=== PATIENT | male | born 1950 | race Caucasian/White ===

== ENCOUNTER → 2018-07-06 | Outpatient (CLI) | payer MEDICARE ==
[2018-07-06 13:59] LABS: Source, Urine Catheter
[2018-07-06 14:08] LABS: Bilirubin, Urine Neg (Neg); Blood, Urine 5+ (Neg); Glucose Qualitative, Urine Neg (Neg); Ketones, Urine Neg (Neg); Leukocyte Esterase, Urine 3+ (Neg); Nitrite, Urine Neg (Neg); Protein, Urine 2+ (Neg); Urobilinogen, Urine NORM (Normal)
[2018-07-06 14:19] LABS: Appearance, Urine Cloudy (Clear); Color, Urine Amber (P-Yellow)
[2018-07-06 14:21] LABS: Red Blood Cells, Urine TNTC /hpf (0-2); Transitional Epithelial Cells Few /hpf (0-Rare); White Blood Cells, Urine TNTC /hpf (0-5)
[2018-07-06 14:22] LABS: Bacteria Few /hpf; Squamous Epithelial Cells Not Seen /hpf (Few)
== END | disposition home or self-care (01) ==
LOC: LAB 13:56 → LAB SHORT 13:56
DX: N39.0 Urinary tract infection, site not specified (principal)
CPT/HCPCS: 81001; 87077; 87086; 87186

== ENCOUNTER → 2018-11-24 | Outpatient (CLI) | payer MEDICARE ==
[2018-11-24 14:51] LABS: Source, Urine Clean Catch
[2018-11-24 15:30] LABS: Bilirubin, Urine Neg (Neg); Blood, Urine Neg (Neg); Glucose Qualitative, Urine Neg (Neg); Ketones, Urine Neg (Neg); Leukocyte Esterase, Urine Neg (Neg); Nitrite, Urine Neg (Neg); Protein, Urine 1+ (Neg); Specific Gravity, Urine 1.025 (1.003-1.022); Urobilinogen, Urine NORM (Normal)
[2018-11-24 15:33] LABS: Appearance, Urine Clear (Clear); Color, Urine Yellow (P-Yellow)
== END | disposition home or self-care (01) ==
LOC: LAB SHORT 14:47 → LAB 14:47
PROVIDERS: Nurse Practitioner Family
DX: N39.0 Urinary tract infection, site not specified (principal)
CPT/HCPCS: 81003

== ENCOUNTER → 2020-12-03 | Outpatient (CLI) | payer MEDICARE ==
[2020-12-03 15:18] LABS: BASOPHILS ABSOLUTE AUTO 0.04 K/mm3 (0.00-0.23); BASOPHILS PERCENT AUTO 1 % (0-2); EOSINOPHILS PERCENT AUTO 5 % (0-6); Hemoglobin 13.7 g/dL (13.5-17.5); IMMATURE GRAN ABSOLUTE AUTO 0.01 K/mm3 (0.00-0.10); IMMATURE GRAN PERCENT AUTO 0 % (0-1); LYMPHOCYTES ABSOLUTE AUTO 1.17 K/mm3 (0.84-5.20); LYMPHOCYTES PERCENT AUTO 21 % (21-46); MONOCYTES ABSOLUTE AUTO 0.57 K/mm3 (0.16-1.47); MONOCYTES PERCENT AUTO 10 % (4-13); Mean Corpuscular HGB 34.1 pg (26.0-34.0); Mean Corpuscular HGB Conc 34.3 g/dL (31.5-36.5); Mean Corpuscular Volume 100 fL (80-100); Mean Platelet Volume 11.5 fL (9.1-12.4); NEUTROPHILS ABSOLUTE AUTO 3.46 K/mm3 (1.96-9.15); NEUTROPHILS PERCENT AUTO 62 % (41-73); Platelet Count 192 K/mm3 (150-400); RDW Coefficient Variation 13.2 % (11.7-14.2); RDW Standard Deviation 48.8 fL (35.1-46.3); Red Blood Cell Count 4.02 M/mm3 (4.30-5.90); White Blood Cell Count 5.55 K/mm3 (4.00-11.30)
== END | disposition home or self-care (01) ==
LOC: LAB SHORT 08:30 → LAB 08:30
PROVIDERS: Internal Medicine
DX: E78.5 Hyperlipidemia, unspecified (principal); R53.81 Other malaise; I10 Essential (primary) hypertension
CPT/HCPCS: 85025

== ENCOUNTER → 2021-09-04 | Outpatient (CLI) | payer MEDICARE ==
[2021-09-04 18:30] LABS: Albumin, Blood 3.7 g/dL (3.4-5.0); Bilirubin, Direct 0.2 mg/dL (0.0-0.3); Bilirubin, Indirect 0.5 mg/dL (0.1-0.7); Bilirubin, Total 0.7 mg/dL (0.1-1.0); Globulin, Blood 3.6 g/dL (2.2-4.0); Total Protein, Blood 7.3 g/dL (6.4-8.2)
== END | disposition home or self-care (01) ==
LOC: LAB SHORT 14:55 → LAB 14:55
PROVIDERS: Internal Medicine
DX: E78.5 Hyperlipidemia, unspecified (principal)
CPT/HCPCS: 80076

== ENCOUNTER 2025-04-07 10:24 | Emergency (ER) | payer MEDICARE ==
[~2025-04-07] VITALS: Ht 188 cm; Wt 86.2 kg
[2025-04-07 10:58] LABS: BASOPHILS ABSOLUTE AUTO 0.03 K/mm3 (0.00-0.23); BASOPHILS PERCENT AUTO 0 % (0-2); EOSINOPHILS ABSOLUTE AUTO 0.01 K/mm3 (0.00-0.68); EOSINOPHILS PERCENT AUTO 0 % (0-6); Hematocrit 38.4 % (37.0-53.0); Hemoglobin 13.6 g/dL (13.5-17.5); IMMATURE GRAN ABSOLUTE AUTO 0.11 K/mm3 (0.00-0.10); IMMATURE GRAN PERCENT AUTO 1 % (0-1); LYMPHOCYTES ABSOLUTE AUTO 1.64 K/mm3 (0.84-5.20); LYMPHOCYTES PERCENT AUTO 10 % (21-46); MONOCYTES ABSOLUTE AUTO 1.23 K/mm3 (0.16-1.47); MONOCYTES PERCENT AUTO 7 % (4-13); Mean Corpuscular HGB Conc 35.4 g/dL (31.5-36.5); Mean Corpuscular Volume 98 fL (80-100); NEUTROPHILS ABSOLUTE AUTO 13.83 K/mm3 (1.96-9.15); NEUTROPHILS PERCENT AUTO 82 % (41-73); NRBC ABSOLUTE 0.00 K/mm3 (0.00-0.02); NRBC Auto 0.0 /100 WBC (0.0-0.2); Platelet Count 242 K/mm3 (150-400); RDW Coefficient Variation 12.8 % (11.7-14.2); RDW Standard Deviation 45.8 fL (35.1-46.3)
[2025-04-07 11:12] LABS: Alanine Aminotransfer (ALT/SGP 131.0 U/L (12-78); Albumin, Blood 3.3 g/dL (3.4-5.0); Albumin/Globulin Ratio 0.9 (0.8-1.8); Anion Gap 12.0 mmol/L (3-11); Aspartate Aminotrans (AST/SGOT 91.0 U/L (12-37); Bilirubin, Total 0.9 mg/dL (0.1-1.0); Blood Urea Nitrogen 84.0 mg/dL (8-24); CO2, Blood 22.0 mmol/L (21-32); Calcium, Blood 9.4 mg/dL (8.5-10.1); Chloride, Blood 111.0 mmol/L (98-108); Creatinine, Blood 1.62 mg/dL (0.60-1.20); Globulin, Blood 3.5 g/dL (2.2-4.0); Glucose, Blood 152.0 mg/dL (70-99); Potassium, Blood 3.4 mmol/L (3.5-5.5); Sodium, Blood 142.0 mmol/L (136-145); Total Protein, Blood 6.8 g/dL (6.4-8.2)
[2025-04-07 11:15] LABS: Source, Urine Fem Cath
[2025-04-07 11:17] LABS: Bilirubin, Urine Neg (Neg); Color, Urine Yellow (P-Yellow); Glucose Qualitative, Urine Neg (Neg); Ketones, Urine 1+ (Neg); Leukocyte Esterase, Urine 3+ (Neg); Protein, Urine 3+ (Neg); Specific Gravity, Urine 1.010 (1.003-1.022); Urobilinogen, Urine NORM (Normal)
[2025-04-07 11:33] LABS: White Blood Cells, Urine 25-50 /hpf (0-5)
[2025-04-07] MEDS ORDERED: CefTRIAXone 1000 MG Vial IM ONE (12:20)
[2025-04-07] MEDS ORDERED: NS 1,000 ML IV SCH (12:20)
[2025-04-07] MEDS ORDERED: CEPH500 PO (16:20)
[2025-04-07 18:00] VITALS: BP 124/71
== END 2025-04-07 19:02 | disposition home or self-care (01) ==
LOC: ER 10:24
PROVIDERS: Emergency Medicine
DX: N39.0 Urinary tract infection, site not specified (principal); I10 Essential (primary) hypertension; F32.A Depression, unspecified
CPT/HCPCS: 51701; 71045; 80053; 81001; 82272; 85025; 87077; 87086; 87186; 93005; 93010; 96360; 96372; 99285-25; J0696; J7030

== ENCOUNTER 2025-04-10 10:32 | Inpatient (IN) | payer MEDICARE ==
[~2025-04-10] VITALS: Ht 182.9 cm; Wt 97.2 kg
[2025-04-10] VITALS (20 sets, daily range): BP systolic 77–105; BP diastolic 38–68
[~2025-04-10 10:32] MED LIST: CEPH500 PO
[2025-04-10] MEDS ORDERED: LISI5 PO (10:57)
[2025-04-10] MEDS ORDERED: ATOR40TA PO (10:57)
[2025-04-10] MEDS ORDERED: Aspir 8181 MG PO (10:57)
[2025-04-10] MEDS ORDERED: AMLO5 PO (10:57)
[2025-04-10] MEDS ORDERED: Acetaminophen325 M1 PO (10:58)
[2025-04-10] MEDS ORDERED: METO50ER PO (10:58)
[2025-04-10] MEDS ORDERED: SERT50 PO (10:58)
[2025-04-10] MEDS ORDERED: BISA10S (10:59)
[2025-04-10] MEDS ORDERED: MIRALAX11910 PO (11:00)
[2025-04-10] MEDS ORDERED: TRAZ50 PO (11:00)
[2025-04-10] MEDS ORDERED: Ondansetron HCl 2 MG / ML 2ML Vial IV PRN (11:00)
[2025-04-10 11:03] LABS: BASOPHILS ABSOLUTE AUTO 0.03 K/mm3 (0.00-0.23); BASOPHILS PERCENT AUTO 0 % (0-2); EOSINOPHILS ABSOLUTE AUTO 0.05 K/mm3 (0.00-0.68); EOSINOPHILS PERCENT AUTO 0 % (0-6); Hematocrit 32.5 % (37.0-53.0); Hemoglobin 11.2 g/dL (13.5-17.5); IMMATURE GRAN ABSOLUTE AUTO 0.18 K/mm3 (0.00-0.10); IMMATURE GRAN PERCENT AUTO 1 % (0-1); LYMPHOCYTES ABSOLUTE AUTO 2.41 K/mm3 (0.84-5.20); LYMPHOCYTES PERCENT AUTO 15 % (21-46); MONOCYTES ABSOLUTE AUTO 1.18 K/mm3 (0.16-1.47); MONOCYTES PERCENT AUTO 8 % (4-13); Mean Corpuscular HGB Conc 34.5 g/dL (31.5-36.5); Mean Corpuscular Volume 100 fL (80-100); NEUTROPHILS ABSOLUTE AUTO 11.80 K/mm3 (1.96-9.15); NEUTROPHILS PERCENT AUTO 75 % (41-73); NRBC ABSOLUTE 0.03 K/mm3 (0.00-0.02); NRBC Auto 0.2 /100 WBC (0.0-0.2); Platelet Count 199 K/mm3 (150-400); RDW Coefficient Variation 13.2 % (11.7-14.2); RDW Standard Deviation 47.7 fL (35.1-46.3)
[2025-04-10 11:24] LABS: Alanine Aminotransfer (ALT/SGP 174.0 U/L (12-78); Albumin, Blood 2.8 g/dL (3.4-5.0); Albumin/Globulin Ratio 0.9 (0.8-1.8); Anion Gap 10.0 mmol/L (3-11); Aspartate Aminotrans (AST/SGOT 109.0 U/L (12-37); Bilirubin, Total 0.6 mg/dL (0.1-1.0); Blood Urea Nitrogen 67.0 mg/dL (8-24); CO2, Blood 26.0 mmol/L (21-32); Calcium, Blood 8.8 mg/dL (8.5-10.1); Chloride, Blood 114.0 mmol/L (98-108); Creatinine, Blood 1.01 mg/dL (0.60-1.20); Globulin, Blood 3.0 g/dL (2.2-4.0); Glucose, Blood 111.0 mg/dL (70-99); Potassium, Blood 3.6 mmol/L (3.5-5.5); Sodium, Blood 146.0 mmol/L (136-145); Total Protein, Blood 5.8 g/dL (6.4-8.2)
[2025-04-10 11:36] LABS: Prothrombin Time Results 12.2 Sec (9.7-11.5)
[2025-04-10] MEDS ORDERED: Pantoprazole Sodium 40 MG Injection IV ONE (11:40)
[2025-04-10] MEDS ORDERED: NS 500 ML IV SCH (11:40)
[2025-04-10] MEDS ORDERED: CefTRIAXone Sodium 1,000 MG in NS 50 ML IV ONE (12:40)
[2025-04-10 13:54] LABS: Hematocrit 30.8 % (37.0-53.0); Hemoglobin 10.4 g/dL (13.5-17.5)
[2025-04-10] MEDS ORDERED: FLU VACC TS2025(65UP)/MF59C/PF 45 MCG/0.5 ML SYRINGE IM SCH (14:55)
[2025-04-10] MEDS ORDERED: NS 500 ML IV ONE ×2 (15:00→17:05)
[2025-04-10] MEDS ORDERED: NS 1,000 ML IV SCH (15:00)
[2025-04-10] MEDS ORDERED: Pantoprazole Sodium 40 MG Injection IV SCH (16:30)
--- NOTE | 2025-04-10 17:49 | NUR ---
ASSUMED CARE 0F PT @1615 PT ALERT, ORIENTED 3-4. HYPOTENSIVE BUT STABLE - RECEIVING FLUID BOLUS X2 UPON ARRIVAL TO UNIT. FINISHED ADMISSION TO [facility] WITH PT RESPONSES AND PAPERWORK. DEEP TISSUE INJURY FOUND TO SACRUM - NOTIFIED DR CHANDRA. UPON FURTHER ASSESMENT- SCROTAL ABRASION AND SKIN TEAR TO R ELBOW NOTED WELL - SKIN CARE IN PLACE. PT REMAINS HYPOTENSIVE POST FLUID 1L LR BOLUS AND 500ML NS BOLUS - UPDATED DR CHANDRA - ORDER FOR REPEAT 500ML BOLUS - FINISHED @1750 - ASSESSING FOR EFFECTIVENESS NOW. PT ASYMPTOMATIC BUT RESTING. REMAINS SR. NO BM OF YET POST ADMISSION - AWAITING FOR STOOL SAMPLE COLLECTION. BED ALARM IN PLACE.
[2025-04-10] MEDS ORDERED: NS 250 ML IV ONE (18:20)
--- NOTE | 2025-04-10 18:27 | NUR ---
provider - idane oscar[gurdeep pf continued low bp's - order for repeat 250ml bolus ns
[2025-04-10 20:33] LABS: Hematocrit 26.5 % (37.0-53.0); Hemoglobin 8.8 g/dL (13.5-17.5)
[2025-04-10] MEDS ORDERED: Lactobacil 2-S.Thermo-Bifido 1 1 Cap PO SCH (21:00)
[2025-04-10 21:17] LABS: Ferritin, Serum 358.0 ng/mL (26-388); Total Iron Binding Capacity 209.0 ug/dL (250-450)
[2025-04-10] MEDS ORDERED: NS 1,000 ML IV ONE (21:30)
[2025-04-10 22:16] LABS: Hematocrit 24.8 % (37.0-53.0); Hemoglobin 8.4 g/dL (13.5-17.5)
--- NOTE | 2025-04-10 23:57 | NUR ---
UPDATE ASSUMED CARE OF PT AT 1900. PT WAS ALERT BUT DROWSY. PT ABLE TO SAY NAME AND AND MONTH OF DATE. LUNG SOUNDS CLEAR. HEART SOUNDS REGULAR. PT HAD VERY LARGE LOOSE DARK RED STOOL AT SHIFT CHANGE. HOSPITALIST NOTIFIED AND TALKED WITH PATIENT WHO AGREED TO BLOOD TRANSFUSIONG IF NECESSARY. PT GIVEN BOLUS AND MIDOR[place] WITHOUT EFFECT. PT HAD SECOND LARGE LOOSE BLACK STOOL. HOSPITALIST NOTIFED AND PROTONIX GTT STARTED. PT AWAITING ICU BED. PT VIVI HOUSE NOTIFED EARLIER PT MAY STATUS CHANGE TO ICU DUE TO SOME BP.
[2025-04-11] VITALS (71 sets, daily range): BP systolic 78–148; BP diastolic 32–97
--- NOTE | 2025-04-11 00:25 | NUR ---
PT ARRIVED FROM PCU ROOM 11 ACCOMPANIED WITH RN VIA BED. PT ORIENTED TO PERSON AND BIRTHDATE ONLY. NS INFUSING AT 100CC/HR. PROTONIX INFUSING AT 10ML/HR. BP 107/76. PT INCONTINENT OF LARGE AMOUNT BLACK LIQUID AND FECAL MANAGEMENT SYSTEM PLACED. PICTURES TAKEN OF RT BUTTOCK, SCROTUM, AND RT ELBOW. ONLY C/O PAIN IS WHEN HE IS CLEANED UP FROM LOOSE BOWEL MOVENT.
--- NOTE | 2025-04-11 01:00 | NUR ---
PT BLADDER SCANNED X [address] ZEPEDA NOTIFED AND # 16 F/C INSERTED. CLEAR YELLOW URINE RETURN. BP MAINTAINING 111/57 WITH MAP OF 75.
[2025-04-11 02:10] LABS: Hematocrit 26.5 % (37.0-53.0); Hemoglobin 8.9 g/dL (13.5-17.5); Mean Corpuscular HGB Conc 33.6 g/dL (31.5-36.5); Mean Corpuscular Volume 102 fL (80-100); NRBC ABSOLUTE 0.02 K/mm3 (0.00-0.02); NRBC Auto 0.1 /100 WBC (0.0-0.2); Platelet Count 152 K/mm3 (150-400); RDW Coefficient Variation 13.4 % (11.7-14.2); RDW Standard Deviation 50.1 fL (35.1-46.3)
[2025-04-11 02:43] LABS: Alanine Aminotransfer (ALT/SGP 124.0 U/L (12-78); Albumin, Blood 2.3 g/dL (3.4-5.0); Albumin/Globulin Ratio 0.9 (0.8-1.8); Anion Gap 9.0 mmol/L (3-11); Aspartate Aminotrans (AST/SGOT 72.0 U/L (12-37); Bilirubin, Total 0.4 mg/dL (0.1-1.0); Blood Urea Nitrogen 56.0 mg/dL (8-24); CO2, Blood 24.0 mmol/L (21-32); Calcium, Blood 7.9 mg/dL (8.5-10.1); Chloride, Blood 116.0 mmol/L (98-108); Creatinine, Blood 0.94 mg/dL (0.60-1.20); Globulin, Blood 2.6 g/dL (2.2-4.0); Glucose, Blood 99.0 mg/dL (70-99); Potassium, Blood 3.7 mmol/L (3.5-5.5); Sodium, Blood 145.0 mmol/L (136-145); Total Protein, Blood 4.9 g/dL (6.4-8.2)
--- NOTE | 2025-04-11 04:58 | NUR ---
UNABLE TO WAKE PATIENT UP. LEVOPHED TITRATED TO 6. DR. LINTON NOTIFIED.
[2025-04-11] MEDS ORDERED: Naloxone HCl 0.4MG / ML 1ML Vial ONE (05:08)
[2025-04-11] MEDS ORDERED: Naloxone HCl 1MG / ML 2ML SYR IV ONE (05:10)
[2025-04-11 05:12] LABS: pH Blood Venous 7.41 (7.34-7.37)
[2025-04-11 05:28] LABS: BASOPHILS ABSOLUTE AUTO 0.07 K/mm3 (0.00-0.23); BASOPHILS PERCENT AUTO 0 % (0-2); EOSINOPHILS ABSOLUTE AUTO 0.57 K/mm3 (0.00-0.68); EOSINOPHILS PERCENT AUTO 4 % (0-6); Hematocrit 25.9 % (37.0-53.0); Hemoglobin 8.6 g/dL (13.5-17.5); IMMATURE GRAN ABSOLUTE AUTO 0.20 K/mm3 (0.00-0.10); IMMATURE GRAN PERCENT AUTO 1 % (0-1); LYMPHOCYTES ABSOLUTE AUTO 4.36 K/mm3 (0.84-5.20); LYMPHOCYTES PERCENT AUTO 27 % (21-46); MONOCYTES ABSOLUTE AUTO 1.33 K/mm3 (0.16-1.47); MONOCYTES PERCENT AUTO 8 % (4-13); Mean Corpuscular HGB Conc 33.2 g/dL (31.5-36.5); Mean Corpuscular Volume 103 fL (80-100); NEUTROPHILS ABSOLUTE AUTO 9.76 K/mm3 (1.96-9.15); NEUTROPHILS PERCENT AUTO 60 % (41-73); NRBC ABSOLUTE 0.02 K/mm3 (0.00-0.02); NRBC Auto 0.1 /100 WBC (0.0-0.2); Platelet Count 160 K/mm3 (150-400); RDW Coefficient Variation 13.4 % (11.7-14.2); RDW Standard Deviation 50.4 fL (35.1-46.3)
[2025-04-11 05:37] LABS: Anion Gap 8.0 mmol/L (3-11); Blood Urea Nitrogen 51.0 mg/dL (8-24); CO2, Blood 23.0 mmol/L (21-32); Calcium, Blood 7.8 mg/dL (8.5-10.1); Chloride, Blood 117.0 mmol/L (98-108); Creatinine, Blood 0.95 mg/dL (0.60-1.20); Glucose, Blood 99.0 mg/dL (70-99); Potassium, Blood 3.5 mmol/L (3.5-5.5); Sodium, Blood 144.0 mmol/L (136-145)
--- NOTE | 2025-04-11 06:38 | NUR ---
END OF SHIFT. PT CAME HERE FROM PCU 11 AT 0025. PT CAN STATE HIS NAME AND DATE OF BUT CONFUSED ON EVERYTHING ELSE. PT HAS LARGE LIQUID COFFEE GROUND STOOL AND FECAL MANAGEMENT SYSTEM APPLIED. BLADDER SCAN ON 465 AND F/C INSERTED FOR ASCCURATE I/O'S. BP DRIFTED DOWN TO MAP OF 54 AND LEVOPHED STARTED AT 2 MICS AND TITRATED TO 10 MICS. PROTONIX DRIP CONTINUED. PT BECAME UNRESONSIVE. dR. Bella NOTIFED AND 1MG NARCAN GIVEN. QUAD CENTRAL LINE INSERTED IN RT JUGULAR. STAT CXRAY. DR. JI CONFIRMED PLACEMENT. AMMONIA AND CBC SENT TO LAB. CT OF HEAR ORDERED WITHOUT CONTRAST.PT RESPONDS TO PAIN BUT GOES RIGHT BACK TO SLEEP.
[2025-04-11 06:43] LABS: Hematocrit 24.4 % (37.0-53.0); Hemoglobin 8.3 g/dL (13.5-17.5)
[2025-04-11 06:59] LABS: Calcium, Ionized (POC) 1.22 mmol/L (1.10-1.46); Chloride (POC) 108 mmol/L (98-108); Creatinine (POC) 1.1 mg/dL (0.8-1.3); Glucose (ISTAT POC) 107 mg/dL (70-99); Hematocrit (POC) 33.0 % (41.0-53.0); Hemoglobin (POC) 11.2 g/dL (13.5-17.5); Potassium (POC) 3.6 mmol/L (3.5-5.5); Sodium (POC) 146 mmol/L (135-148); Total CO2 (POC) 21 mmol/L (21-32)
--- NOTE | 2025-04-11 08:01 | NUR ---
ASSUMED CARE NOTE: ASSUMED CARE OF PT AT 0700. PT IS LETHARGIC, RESPONDS TO VERBAL STIMULI, ORIENTED TO SELF/MONTH, DISORIENTED TO PLACE AND SITUATION. PT ABLE TO FOLLOW SIMPLE COMMANDS. PT ON RA WITH SPO2 ABOVE 92% MOUTH BREATHING, ORAL MUCOSA DRY, ORAL CARE PROVIDED. PT IN SINUS ARRYTHMIA, HR 50'S, LEVOPHED INFUSING AT 6MCG/MIN VIA CENTRAL LINE TO MAINTAIN MAP ABOVE 65. ACTIVE BT IN ALL QUADRANTS, RECTAL TUBE DRAINING TO GRAVITY, COFFEE GROUND STOOL NOTED. BUSTILLO PATENT, DRAINING TO GRAVITY, CLEAR YELLOW URINE NOTED. PT TAKEN FOR HEAD CT. PLAN OF CARE ONGOING.
[2025-04-11] MEDS ORDERED: NS 1,000 ML IV SCH (08:05)
[2025-04-11] MEDS ORDERED: CefTRIAXone Sodium 1,000 MG in NS 100 ML IV SCH (09:00)
[2025-04-11 11:36] LABS: Hematocrit 22.9 % (37.0-53.0); Hemoglobin 7.8 g/dL (13.5-17.5)
[2025-04-11 12:53] LABS: Stool Occult Bld Immuno 1 Positive (NEGATIVE)
[2025-04-11 16:39] LABS: Hematocrit 22.9 % (37.0-53.0); Hemoglobin 7.9 g/dL (13.5-17.5)
--- NOTE | 2025-04-11 18:20 | NUR ---
SHIFT SUMMARY: PT LETHARGIC, OPENS EYES TO VERBAL STIMULI, ABLE TO FOLLOW SIMPLE COMMANDS. PT CONFUSED, ORIENTED TO SELF ONLY. MUMBLED SPEECH, SLOW TO RESPOND. PT IN SR, HR IN THE 60'S. BP STABLE, MAP REMAINS ABOVE 65, LEVOPHED OFF AT 1600. PT PLACED ON 2L OF OXYGEN VIA NC , SPO2 ABOVE 95% NO RESP DISTRESS NOTED. PT ENDORSES TENDERNESS TO LOWER ABD QUADRANTS, FECAL MANAGMENT SYSTEM IN PLACE, DRAINING BLACK LIQUID STOOL. BUSTILLO PATENT, DRAINING TO GRAVITY, CLEAR YELLOW URINE NOTED. SCD'S IN PLACE. ORAL CARE PROVIDED Q4HRS. PT REPOSITIONED Q2HRS. NS INFUSING AT 150ML/HR, PROTONIX AT 10ML/HR. CENTRAL LINE TO RIJ C/D/I. PLAN OF CARE ONGOING.
--- NOTE | 2025-04-11 19:15 | NUR ---
ASSUMPTION OF CARE: REPORT FROM AEB RN, THIS RN TO ASSUME CARE OF PT. PT ALERT AND LISTENING TO BEDSIDE SHIFT REPORT. SINUS ON THE MONITOR. BUSTILLO AND RECTAL TUBE IN PLACE. DENIES ANY COMPLAINTS OR NEEDS AT THIS TIME. CALL LIGHT IN REACH.
[2025-04-11 23:11] LABS: Hematocrit 21.1 % (37.0-53.0); Hemoglobin 7.3 g/dL (13.5-17.5)
[2025-04-12] VITALS (13 sets, daily range): BP systolic 97–136; BP diastolic 43–68
--- NOTE | 2025-04-12 02:02 | NUR ---
UPDATE: CRISELDA SWALLOW EVAL PERFORMED AT THE BEGINNING OF THE SHIFT. PT WAS ABLE TO TOLERATE WATER FINE AND TOOK HIS PILLS WITH APPLESAUCE WITH NO PROBLEMS. LATER THIS AM PT ASKED FOR SOME WATER, PT WAS GIVEN WATER AND CLEARED THROAT A FEW TIMES AFTER DRINKING WATER. PLAN TO MAKE PT NPO TILL LATER WHEN HE IS AWAKE TO REEVALUATE AND SPEECH EVAL ORDERED.
[2025-04-12 04:41] LABS: Hematocrit 21.3 % (37.0-53.0); Hemoglobin 7.2 g/dL (13.5-17.5); Mean Corpuscular HGB Conc 33.8 g/dL (31.5-36.5); Mean Corpuscular Volume 101 fL (80-100); NRBC ABSOLUTE 0.00 K/mm3 (0.00-0.02); NRBC Auto 0.0 /100 WBC (0.0-0.2); Platelet Count 128 K/mm3 (150-400); RDW Coefficient Variation 13.3 % (11.7-14.2); RDW Standard Deviation 49.4 fL (35.1-46.3)
[2025-04-12 04:53] LABS: Anion Gap 5.0 mmol/L (3-11); Blood Urea Nitrogen 21.0 mg/dL (8-24); CO2, Blood 28.0 mmol/L (21-32); Calcium, Blood 7.6 mg/dL (8.5-10.1); Chloride, Blood 114.0 mmol/L (98-108); Creatinine, Blood 0.73 mg/dL (0.60-1.20); Glucose, Blood 106.0 mg/dL (70-99); Potassium, Blood 3.4 mmol/L (3.5-5.5); Sodium, Blood 144.0 mmol/L (136-145)
--- NOTE | 2025-04-12 07:19 | NUR ---
SHIFT SUMMARY: PT A&OX4. FOLLOWS COMMANDS AND MAKES NEEDS KNOWN TO STAFF. PT HAS RESTED MOST OF THE NIGHT WITH NO COMPLAINTS OF CP, PRESSURE, TIGHTNESS OR SOB. VSS. AFEBRILE. BUSTILLO REMAINS IN PLACE WITH GOOD OUTPUT OVERNIGHT. RECTAL TUBE REMAINS IN PLACE WITH A SMALL AMOUNT OF DARK LIQUID STOOL. PROTONIX GTT INFUSING. POTASSIUM IS BEING REPLACED AT THIS TIME. QUAD LUMEN CENTRAL LINE REMAINS IN PLACE TO R NECK. SEE PREVIOUS NOTE ABOUT SWALLOWING CONCERNS. NO SIGNIFICANT EVENTS HAPPENED DURING THIS SHIFT.
[2025-04-12] MEDS ORDERED: NS 50 ML IV ONE (09:26)
[2025-04-12 11:26] LABS: Hematocrit 22.0 % (37.0-53.0); Hemoglobin 7.6 g/dL (13.5-17.5)
--- NOTE | 2025-04-12 16:26 | NUR ---
SHIFT SUMMARY NEURO: PT ALERT AND ORIENTED X4 WITH SOME INTERMITTENT CONFUSION. REPEATS EVENTS BACK TO HIMSELF AT TIMES TO REMEMBER NAMES ETC. ABLE TO MAKE HIS NEEDS KNOWN. HAS NOT USED CALL TAYLOR. VERY PLESANT. CARDIAC: SR, SBP 90-120S, HR 50-60 THIS AM, NOW 80-90S. +EDEMA BUE +2. + 4.2L PULM: LUNGS CLEAR TO AUSCULATION. ON 2LPM THIS AM. SPO2 >95% ON RA. GI: ABDOMEN IS SOFT AND TENDER, SOME MILD NAUSEA. RECTAL TUBE IN PLACE SMALL AMOUNT OF BLACK LIQUID STOOL IN DEVICE. DECREASED APPEITE BUT TAKING IN PO FLUIDS WELL. : BUSTILLO IN PLACE DRAINING TO GRAVITY. CLEAR/YELLOW. SKIN: PHOTOS IN CHART. MEPLIEX TO COCCYX STG 2 PRESSURE INJURY PRESENT ON ADMISSION. R ELBOW INCINERATOR ATTENDANT, OBLONG SKIN TEAR PRESENT ON ADMISSION. REDNESS TO SCROTUM UNCHANGED. [facility] CALL[facility] AND PROVIDED UPDATE. PT CHG BATH COMPLETED WITH GOWN CHANGE. RIJ CENTRAL LINE REMOVED AND PT STATUS CHANGED TO PCU.
[2025-04-13] VITALS (80 sets, daily range): BP systolic 57–153; BP diastolic 38–85
[2025-04-13 01:24] LABS: Hematocrit 20.7 % (37.0-53.0); Hemoglobin 7.1 g/dL (13.5-17.5)
[2025-04-13 01:45] LABS: Alanine Aminotransfer (ALT/SGP 70.0 U/L (12-78); Albumin, Blood 1.9 g/dL (3.4-5.0); Albumin/Globulin Ratio 0.8 (0.8-1.8); Anion Gap 12.0 mmol/L (3-11); Aspartate Aminotrans (AST/SGOT 35.0 U/L (12-37); Bilirubin, Total 0.5 mg/dL (0.1-1.0); Blood Urea Nitrogen 16.0 mg/dL (8-24); CO2, Blood 23.0 mmol/L (21-32); Calcium, Blood 7.5 mg/dL (8.5-10.1); Chloride, Blood 108.0 mmol/L (98-108); Creatinine, Blood 0.89 mg/dL (0.60-1.20); Globulin, Blood 2.3 g/dL (2.2-4.0); Glucose, Blood 161.0 mg/dL (70-99); Potassium, Blood 3.4 mmol/L (3.5-5.5); Sodium, Blood 140.0 mmol/L (136-145); Total Protein, Blood 4.2 g/dL (6.4-8.2)
--- NOTE | 2025-04-13 01:57 | NUR ---
CHANGE IN CONDITION AT APPROX 0100, PT HR TRENDING UP CONSISTENTLY INTO 100'S, EVENTUALLY INTO 120'S WITH RR INCREASING WELL, UP TO 30'S. DIFFICULT TO ROUSE WITH VERBAL STIMULI, BUT RESPONSDED TO STERNAL RUB. BP 40'S-60'S SYSTOLIC WITH MAPS IN THE 40'S ON EITHER ARM. AM LABS DRAWN EARLY, PT STATUS CHANGED BACK TO ICU TO REINITIATE LEVOPHED GTT. LEVOPHED STARTED AT 2MCG/MIN AT A RATE OF 7.5. TITRATING TO A MAP OF >65. MD NOTIFIED OF CHANGE IN CONDITION AND HGB OF 7.1. 1U PRBCS ORDERED.
[2025-04-13] MEDS ORDERED: NS 250 ML IV PRN (02:15)
[2025-04-13] MEDS ORDERED: Potassium Chl 20MEQ/Water100ML 100 ML IV ONE (03:40)
[2025-04-13 06:28] LABS: Hematocrit 23.8 % (37.0-53.0); Hemoglobin 8.3 g/dL (13.5-17.5)
--- NOTE | 2025-04-13 06:28 | NUR ---
SHIFT SUMMARY ASSUMED CARE AT 1900. PT A/O X 3 TO SELF, PLACE, AND TIME, BUT UNCLEAR ON SITUATION. HE DENIES PAIN AND IS COOPERATIVE WITH CARE. VERY SLEEPY. ON RA, SATS ABOVE 95%, BREATHING IS SHALLOW AND UNLABORED. ON CONTINUOUS CARDIAC TELEMETRY, VSS AT BEGINNING OF SHIFT. SEE CHANGE IN CONDITION NOTE. PT CURRENTLY IN SINUS TACH, HR 100 S. PT ROUSABLE TO VERBAL STIMULI, USING COHERENT SENTENCES. BP 80'S/40 S, MAP 60 S. CURRENTLY RUNNING LEVOPHED AT 7MCG/MIN AND 1U PRBCS INFUSED, REPEAT H + H TO FOLLOW. 900ML OUT OF RECTAL TUBE. STOOL DARK AND LIQUID. REPOSITIONED Q2, BEDREST AT THIS TIME.
[2025-04-13 16:47] LABS: Hematocrit 24.4 % (37.0-53.0); Hemoglobin 8.6 g/dL (13.5-17.5)
--- NOTE | 2025-04-13 17:55 | NUR ---
SHIFT SUMMARY NO ACUTE CHANGES THIS SHIFT. PT REMAINS DROWSEY, BUT IS EASILY AROUSEABLE TO VERBAL STIMULI. PT IS ABLE TO ANSWER MOST QUESTIONS APPROPRIATELY, BUT IS FORGETFUL AT TIMES. PT DENIES PAIN OR DISCOMFORT. PT WITHOUT APPETITE THIS SHIFT, BUT IS ABLE TO TAKE MEDS WITHOUT DIFFICULTY. PT TITRATED OFF LEVOPHED THIS SHIFT. VITAL SIGNS REMAIN STABLE. PT RECIEVED 1 UNIT PRBC'S THIS SHIFT. PT TAKEN TO NUCLEAR MED STUDY WITHOUT DIFFICULTY. PT CONTINUES WITH BLACK LIQUID STOOL NOTED IN RECTAL TUBE. BUSTILLO REMAINS IN PLACE WITH SMALL AMOUNT OF DARK YELLOW URINE OUTPUT NOTED. WOUNDS REMAIN UNCHANGED. NO FAMILY AT BEDSIDE. WILL CONTINUE TO MONITOR AND REPORT OFF TO ONCOMING RN.
[2025-04-14] VITALS (19 sets, daily range): BP systolic 94–151; BP diastolic 51–97
[2025-04-14 03:35] LABS: Hematocrit 24.4 % (37.0-53.0); Hemoglobin 8.6 g/dL (13.5-17.5); Mean Corpuscular HGB Conc 35.2 g/dL (31.5-36.5); NRBC ABSOLUTE 0.00 K/mm3 (0.00-0.02); NRBC Auto 0.0 /100 WBC (0.0-0.2); Platelet Count 126 K/mm3 (150-400); RDW Coefficient Variation 15.8 % (11.7-14.2); RDW Standard Deviation 52.0 fL (35.1-46.3)
[2025-04-14 03:51] LABS: Mean Corpuscular Volume 94 fL (80-100)
[2025-04-14 03:55] LABS: Anion Gap 9.0 mmol/L (3-11); Blood Urea Nitrogen 28.0 mg/dL (8-24); CO2, Blood 24.0 mmol/L (21-32); Calcium, Blood 7.8 mg/dL (8.5-10.1); Chloride, Blood 112.0 mmol/L (98-108); Creatinine, Blood 0.91 mg/dL (0.60-1.20); Glucose, Blood 105.0 mg/dL (70-99); Potassium, Blood 3.7 mmol/L (3.5-5.5); Sodium, Blood 141.0 mmol/L (136-145)
--- NOTE | 2025-04-14 06:25 | NUR ---
PT STABLE THROUGHOUT SHIFT. PT ORIENTATION REMAINED LABILE. PT IRRITABLE AND RESISTANT TO CARES AND MEDICATIONS AT BEGINNING OF SHIFT. PT DID SLEEP THROUGHOUT THE NIGHT W/O PROBLEM. PT TOLERATING PROTONIX INFUSION WELL. H&H STABLIZED. BUSTILLO DRAINING WELL TO GRAVITY. RECTAL TUBE OUTPUT CONTINUES TO BE BLACK/DARK BROWN LIQUID STOOL. RECTAL TUBE REPLACED. PT DID HAVE SOME SOFT BP THOUGH MAP REMAINED ABOVE 65 AND SYSTOLIC REMAINED IN THE 90s OR GREATER. NO OTHER C/O BY PT OTHER THAN WANTING TO BE LEFT ALONE TO SLEEP.
[2025-04-14 10:15] LABS: Hematocrit 27.0 % (37.0-53.0); Hemoglobin 9.5 g/dL (13.5-17.5)
--- NOTE | 2025-04-14 14:06 | NUR ---
ASSUMED CARE NOTE RECEIVED REPORT FROM KHAI RIDER AND ASSUMED CARE OF PT AT 1355. PT A&OX3, TRANSFERRED FROM BED TO BED W/ SLIDER SHEET, PATENT RECTAL TUBE IN PLACE, AND DENIED PAIN. PT ORIENTED TO ROOM AND CALL LIGHT. CALL LIGHT PLACED WITHIN REACH.
--- NOTE | 2025-04-14 18:00 | NUR ---
SHIFT SUMMARY PT A&OX3, CONFUSED AT TIMES, BUT NOT IMPUSIVE, VSS, TOLERATING CLEAR LIQUIDS, VOIDING, AND DENIED PAIN. RECTAL TUBE IN PLACE AND PATENT W/ DARK BROWN/BLACK LIQUID OUTPUT. PT WORKED W/ PHYSICAL THERAPY AND WAS ABLE TO STAND UP FROM BED W/O DIFFICULTY AND MINIMAL ASSIST, SEE THERAPY NOTE. PROTONIX DRIP CONT TO INFUSE PER ORDER. NO OTHER ACUTE CHANGES. CALL LIGHT WITHIN REACH AND BED ALAMR ON.
[2025-04-14 21:28] LABS: BASOPHILS ABSOLUTE AUTO 0.06 K/mm3 (0.00-0.23); BASOPHILS PERCENT AUTO 0 % (0-2); EOSINOPHILS ABSOLUTE AUTO 0.40 K/mm3 (0.00-0.68); EOSINOPHILS PERCENT AUTO 3 % (0-6); Hematocrit 23.6 % (37.0-53.0); Hemoglobin 8.3 g/dL (13.5-17.5); IMMATURE GRAN ABSOLUTE AUTO 0.11 K/mm3 (0.00-0.10); IMMATURE GRAN PERCENT AUTO 1 % (0-1); LYMPHOCYTES ABSOLUTE AUTO 1.38 K/mm3 (0.84-5.20); LYMPHOCYTES PERCENT AUTO 9 % (21-46); MONOCYTES ABSOLUTE AUTO 0.74 K/mm3 (0.16-1.47); MONOCYTES PERCENT AUTO 5 % (4-13); Mean Corpuscular HGB Conc 35.2 g/dL (31.5-36.5); Mean Corpuscular Volume 95 fL (80-100); NEUTROPHILS ABSOLUTE AUTO 12.69 K/mm3 (1.96-9.15); NEUTROPHILS PERCENT AUTO 83 % (41-73); NRBC ABSOLUTE 0.02 K/mm3 (0.00-0.02); NRBC Auto 0.1 /100 WBC (0.0-0.2); Platelet Count 149 K/mm3 (150-400); RDW Coefficient Variation 15.9 % (11.7-14.2); RDW Standard Deviation 53.1 fL (35.1-46.3)
[2025-04-15] VITALS (11 sets, daily range): BP systolic 99–128; BP diastolic 51–70
[2025-04-15 04:30] LABS: Alanine Aminotransfer (ALT/SGP 52.0 U/L (12-78); Albumin, Blood 1.7 g/dL (3.4-5.0); Albumin/Globulin Ratio 0.6 (0.8-1.8); Anion Gap 10.0 mmol/L (3-11); Aspartate Aminotrans (AST/SGOT 36.0 U/L (12-37); Bilirubin, Total 0.6 mg/dL (0.1-1.0); Blood Urea Nitrogen 23.0 mg/dL (8-24); CO2, Blood 24.0 mmol/L (21-32); Calcium, Blood 7.6 mg/dL (8.5-10.1); Chloride, Blood 108.0 mmol/L (98-108); Creatinine, Blood 0.82 mg/dL (0.60-1.20); Globulin, Blood 2.7 g/dL (2.2-4.0); Glucose, Blood 111.0 mg/dL (70-99); Potassium, Blood 3.8 mmol/L (3.5-5.5); Sodium, Blood 138.0 mmol/L (136-145); Total Protein, Blood 4.4 g/dL (6.4-8.2)
[2025-04-15 04:38] LABS: BASOPHILS ABSOLUTE AUTO 0.04 K/mm3 (0.00-0.23); BASOPHILS PERCENT AUTO 0 % (0-2); EOSINOPHILS ABSOLUTE AUTO 0.39 K/mm3 (0.00-0.68); EOSINOPHILS PERCENT AUTO 3 % (0-6); Hematocrit 20.9 % (37.0-53.0); Hemoglobin 7.6 g/dL (13.5-17.5); IMMATURE GRAN ABSOLUTE AUTO 0.08 K/mm3 (0.00-0.10); IMMATURE GRAN PERCENT AUTO 1 % (0-1); LYMPHOCYTES ABSOLUTE AUTO 1.74 K/mm3 (0.84-5.20); LYMPHOCYTES PERCENT AUTO 13 % (21-46); MONOCYTES ABSOLUTE AUTO 0.74 K/mm3 (0.16-1.47); MONOCYTES PERCENT AUTO 5 % (4-13); Mean Corpuscular HGB Conc 36.4 g/dL (31.5-36.5); Mean Corpuscular Volume 93 fL (80-100); NEUTROPHILS ABSOLUTE AUTO 10.91 K/mm3 (1.96-9.15); NEUTROPHILS PERCENT AUTO 79 % (41-73); NRBC ABSOLUTE 0.03 K/mm3 (0.00-0.02); NRBC Auto 0.2 /100 WBC (0.0-0.2); Platelet Count 143 K/mm3 (150-400); RDW Coefficient Variation 15.4 % (11.7-14.2); RDW Standard Deviation 49.5 fL (35.1-46.3)
--- NOTE | 2025-04-15 06:09 | NUR ---
Shift Summary Pt somnolent t/o the shift, he is easily arousable and AOx3 when awake. I gave him some water to drink and he aspirated a small amount. I called the resident who ordered an ST evaluation. Pt was able to void after having Aguilar removed yesterday, incontinent voids, attends changed PRN. No c/o pain or nausea. Rectal tube in place at patent, pt still producing dark black stool.
[2025-04-15 11:22] LABS: Hematocrit 20.9 % (37.0-53.0); Hemoglobin 7.3 g/dL (13.5-17.5)
--- NOTE | 2025-04-15 12:11 | NUR ---
THIS RN CALLED TO NOTIFY OF PT'S LOW BP, ELEVATED HR, AND HGB TRENDING DOWN. PT ASYMPTOMATIC AT THIS TIME.
[2025-04-15] MEDS ORDERED: NS 500 ML IV SCH (13:20)
[2025-04-15] MEDS ORDERED: Sucralfate 1000MG / 10ML UD BTL PO SCH (16:30)
--- NOTE | 2025-04-15 18:18 | NUR ---
SHIFT SUMMARY PT HAD ST EVAL THIS AM, NOW ON MILDLY THICK LIQUIDS AND MEDS CRUSHED. RECTAL TUBE REMAINS IN PLACE AND PATENT W/ BLACK/DARK BROWN OUTPUT. PT HGB TRENDING DOWN, BECAME HYPOTENSIVE, AND TACHYCARDIC. 1 UNIT PRBC'S INFUSED. BP IMPROVED AND WNL. PT REMAINS TACHYCARDIC LOW 100'S-120'S. PROTONIX DRIP INFUSING PER ORDER. CHEST XRAY AND BNP COMPLETE. NO OTHER ACUTE CHANGES. CALL LIGHT WITHIN REACH AND BED ALARM ON.
[2025-04-15 20:16] LABS: Hematocrit 24.8 % (37.0-53.0); Hemoglobin 8.4 g/dL (13.5-17.5)
[2025-04-16] VITALS (9 sets, daily range): BP systolic 116–166; BP diastolic 56–69
[2025-04-16 02:28] LABS: BASOPHILS ABSOLUTE AUTO 0.06 K/mm3 (0.00-0.23); BASOPHILS PERCENT AUTO 1 % (0-2); EOSINOPHILS ABSOLUTE AUTO 0.29 K/mm3 (0.00-0.68); EOSINOPHILS PERCENT AUTO 2 % (0-6); Hematocrit 20.5 % (37.0-53.0); Hemoglobin 7.3 g/dL (13.5-17.5); IMMATURE GRAN ABSOLUTE AUTO 0.10 K/mm3 (0.00-0.10); IMMATURE GRAN PERCENT AUTO 1 % (0-1); LYMPHOCYTES ABSOLUTE AUTO 1.97 K/mm3 (0.84-5.20); LYMPHOCYTES PERCENT AUTO 15 % (21-46); MONOCYTES ABSOLUTE AUTO 0.79 K/mm3 (0.16-1.47); MONOCYTES PERCENT AUTO 6 % (4-13); Mean Corpuscular HGB Conc 35.6 g/dL (31.5-36.5); Mean Corpuscular Volume 92 fL (80-100); NEUTROPHILS ABSOLUTE AUTO 9.75 K/mm3 (1.96-9.15); NEUTROPHILS PERCENT AUTO 75 % (41-73); NRBC ABSOLUTE 0.07 K/mm3 (0.00-0.02); NRBC Auto 0.5 /100 WBC (0.0-0.2); Platelet Count 137 K/mm3 (150-400); RDW Coefficient Variation 16.6 % (11.7-14.2); RDW Standard Deviation 52.8 fL (35.1-46.3)
[2025-04-16 03:00] LABS: Anion Gap 8.0 mmol/L (3-11); Blood Urea Nitrogen 33.0 mg/dL (8-24); CO2, Blood 25.0 mmol/L (21-32); Calcium, Blood 7.4 mg/dL (8.5-10.1); Chloride, Blood 110.0 mmol/L (98-108); Creatinine, Blood 0.88 mg/dL (0.60-1.20); Glucose, Blood 126.0 mg/dL (70-99); Potassium, Blood 3.5 mmol/L (3.5-5.5); Sodium, Blood 139.0 mmol/L (136-145)
[2025-04-16 04:38] LABS: Magnesium, Blood 1.5 mg/dL (1.6-2.4)
--- NOTE | 2025-04-16 06:54 | NUR ---
PT STABLE THROUGHOUT THE SHIFT. PT REMAINS AOX2-3 AND IS COOPERATIVE WITH CARE. PT REMAINS INCONTINENT OF URINE AND DID HAVE LEAKING AROUND RECTAL TUBE. FULL LINEN AND BRIEF CHANGED WITH ALEXANDR CARE DONE. INCREASED ECTOPY NOTED AND WITH PT CONTINUING TO HAVE LIQUID STOOLS DR. AVALOS WAS CONTACTED AND LAB TESTS ORDERED. NO REPLETION AT THIS TIME. H&H 7.3 / 20.5 THIS AM. PT DOES APPEAR TO BE SLIGHTLY MORE EDEMATOUS GENERALLY THIS MORNING, NEXT SHIFT AWARE.
[2025-04-16] MEDS ORDERED: Mag Sulfate 1 GM/D5% 100ML 100 ML IV STA (09:07)
[2025-04-16 10:29] LABS: Hematocrit 20.6 % (37.0-53.0); Hemoglobin 7.1 g/dL (13.5-17.5)
--- NOTE | 2025-04-16 15:41 | NUR ---
THIS RN GAVE REPORT TO KHAI GOYAL. JYOTSNA TO ASSUME CARE OF PT.
[2025-04-16] MEDS ORDERED: Pantoprazole Sodium 40 MG Injection IV ONE (16:00)
--- NOTE | 2025-04-16 16:03 | NUR ---
ASSUMPTION NOTE: THIS RN TO ASSUME CARE OF RADHATIMUR. PATIENT IS ALERT AND OREINTED X3, NOT ABLE TO GIVE WHAT BROUGHT HIM HERE BUT IS AWARE HE IS IN THE HOSPITAL. PATIENT IS SATTING >92% ON ROOM AIR, DENIED ANY FEELING OF SHORTNESS OF BREATH. PATIENT ON TELE SHOWING SINUS RYTHM IN 80'S. PATIENT DENIED ANY CHEST PAIN, HAS SCD'S ON. PROTONIX DRIP WAS DISCONTINUED AND A ONE TIME DOSE WAS GIVEN IV. PATIENT IS INCONTINENT,FREQUENT CHECKS AND Q2 TURNS PATIENT HAS A DEEP TISSUE SORE ON SACRUM. PATIENT HAS CALL LIGHT WITHIN REACH, BED IN LOWEST LOCKED POSIITON & STATING NOTHING ELSE IS NEEED AT THIS TIME.
[2025-04-16 16:26] LABS: Hematocrit 21.0 % (37.0-53.0); Hemoglobin 7.4 g/dL (13.5-17.5)
--- NOTE | 2025-04-16 18:04 | NUR ---
TRANSFER NOTE: LUPE MATAMOROS TRANSFFERED OUT TO [facility] VIA [facility] TRANSFER. PATIENT IS ALERT AND ORIENTED X3, NOT ABLE TO GIVE EXACT SITUATION. SATTNG >92% ON ROOM AIR. BLOOD PRESSRES HAVE BEEN STABLE, MAPS >65. PATIENT HAS A RECTAL TUBE IN DUE TO BLACK/DARK BROWN LIQUID STOOLS. THE LAST HEMOGLOBIN CAME BACK AT 7.4. BLOOD WAS STARTED PRIOR TO TRANSFER. PATIENT AWARE OF TRANSFER & AGREEABLE TO IT. PATIENT TOOK ALL PERSONAL BELONINGS WITH HIM.
== END 2025-04-16 18:02 | disposition short-term general hospital (02) | DRG 380 ==
LOC: ER 10:32 → PCU 10:33 → ICUE 10:33 → EDBEDREQTM 15:11 → EDBEDREQ 15:11 → PCU 15:33 → ICUE 04-11 00:10 → PCU 04-14 13:50
PROVIDERS: Emergency Medicine; Family Medicine; Internal Medicine; Student in an Organized Health Care Education/Training Program; ADMIT Internal Medicine
PROC: 0T9B70Z Drainage of Bladder with Drainage Device, Via Natural or Artificial Opening (ICD-10-PCS; 2025-04-10)
PROC: 3E033XZ Introduction of Vasopressor into Peripheral Vein, Percutaneous Approach (ICD-10-PCS; 2025-04-10)
PROC: 3E03329 Introduction of Other Anti-infective into Peripheral Vein, Percutaneous Approach (ICD-10-PCS; principal; 2025-04-11)
PROC: 30233N1 Transfusion of Nonautologous Red Blood Cells into Peripheral Vein, Percutaneous Approach (ICD-10-PCS; 2025-04-13)
DX: K22.11 Ulcer of esophagus with bleeding (principal); R57.1 Hypovolemic shock; R57.8 Other shock; I50.32 Chronic diastolic (congestive) heart failure; N39.0 Urinary tract infection, site not specified; D62 Acute posthemorrhagic anemia; E87.1 Hypo-osmolality and hyponatremia; E87.0 Hyperosmolality and hypernatremia; E87.21 Acute metabolic acidosis; F03.90 Unspecified dementia, unspecified severity, without behavioral disturbance, psychotic disturbance, mood disturbance, and anxiety; E78.5 Hyperlipidemia, unspecified; I11.0 Hypertensive heart disease with heart failure; K57.30 Diverticulosis of large intestine without perforation or abscess without bleeding; E87.6 Hypokalemia; R13.10 Dysphagia, unspecified; B96.4 Proteus (mirabilis) (morganii) as the cause of diseases classified elsewhere; R74.01 Elevation of levels of liver transaminase levels; F32.A Depression, unspecified; E86.0 Dehydration; Z87.440 Personal history of urinary (tract) infections; Z82.3 Family history of stroke; Z82.49 Family history of ischemic heart disease and other diseases of the circulatory system; Z86.73 Personal history of transient ischemic attack (TIA), and cerebral infarction without residual deficits; Z79.82 Long term (current) use of aspirin; Z79.899 Other long term (current) drug therapy
CPT/HCPCS: 36415; 36430; 36556; 70450; 71045; 74177; 78278; 80047; 80048; 80053; 82140; 82272; 82274; 82607; 82728; 82746; 82803; 82947; 83540; 83550; 83605; 83735; 83880; 85014; 85018; 85025; 85027; 85610; 85730; 86850; 86900; 86901; 86923; 87040; 92610; 93005; 93010; 93971; 94760; 96361; 96365-59; 96366; 96367; 96375; 96376; 97110; 97161; 97166; 97530; 97535; 99285-25; A9270; A9560; C1751; G0378; J0696; J2312; J2405; J2470; J3475; J3480; J7030; J7040; J7050; J7120; P9016; Q9967